=== PATIENT | male | born 1965 | race Caucasian/White ===

== ENCOUNTER 2021-01-09 07:45 | Emergency (ER) | payer BC, OTHER ==
[~2021-01-09] VITALS: Ht 185.4 cm; Wt 136.1 kg
[~2021-01-09 07:45] MED LIST: NORCO 5-325 TA1 EACH PO; TOBREX5 ML OPHTHALMIC
[2021-01-09] MEDS ORDERED: BENAZEPRIL-HCT1 EA11 PO (07:55)
[2021-01-09 08:22] LABS: ABSOLUTE NEUTROPHILS 5.6 thou/uL (1.4-8.2); BASOPHILS 0.9 % (0.0-2.0); EOSINOPHILS 3.3 % (0.0-3.0); HEMATOCRIT 48.4 % (42.0-52.0); HEMOGLOBIN 16.4 gm/dL (14.0-18.0); LYMPHOCYTES 18.2 % (24.0-44.0); MCH 30.6 pg (26.0-34.0); MCHC 33.9 g/dL (28.0-37.0); MCV 90.4 fL (80.0-100.0); MONOCYTES 9.3 % (1.0-8.0); PLATELET COUNT 166 thou/uL (150-400); POLYS 68.3 % (36.0-66.0); RBC 5.36 mil/uL (4.50-6.00); RDW 13.7 % (10.5-14.5); WBC 8.2 thou/uL (4.0-11.0)
[2021-01-09 08:27] LABS: ANION GAP 6 mmol/L (7-16); BUN 22 mg/dL (7-18); CALCIUM 8.8 mg/dL (8.5-10.1); CHLORIDE 100 mmol/L (98-107); CO2 30 mmol/L (21-32); CREATININE 1.3 mg/dL (0.7-1.3); GLUCOSE 284 mg/dL (74-106); POTASSIUM 4.3 mmol/L (3.5-5.1); SODIUM 136 mmol/L (136-145)
[2021-01-09 08:38] LABS: ALBUMIN 3.7 g/dL (3.4-5.0); AMYLASE 39 U/L (25-115); DIRECT BILIRUBIN 0.1 mg/dL (<0.1-0.2); LIPASE 190 U/L (73-393); SGOT 33 U/L (15-37); SGPT 60 U/L (16-63); TOTAL BILIRUBIN 0.6 mg/dL (0.2-1.0); TOTAL PROTEIN 7.3 g/dL (6.4-8.2); TROPONIN-I <0.06 ng/mL (<0.06)
[2021-01-09] MEDS ORDERED: VANACOF DM LIQ240 ML PO (09:13)
[2021-01-09] MEDS ORDERED: HYDROCODON-ACE1 EAC5 PO (09:13)
[2021-01-09] MEDS ORDERED: AZITHROMYCIN500 MG PO (09:13)
[2021-01-09] MEDS ORDERED: PROAIR HFA8.5 GM INH (09:14)
[2021-01-09 09:18] VITALS: BP 177/110
--- NOTE | 2021-01-10 07:38 | EKG ---
[place] [address] [address] [facility] [place] [address] ELECTROCARDIOGRAM REPORT Name: JOSE VAUGHN [id number] Admission: 01/09/21 Attend Phys: Discharge: 01/09/21 Date of : 61 Report #: [id number] [facility] ED Test Date: 2021-01-09 Test Time: 07:54:01 Pat Name: JOSE VAUGHN Department: Room: Gender: Deck Worker: MARYANA : 1965 Requested By: Adrián Riley Order Number: [id number] MD: Morris Mullen Measurements Intervals [place] Rate: 67 P: 41 [place]: 165 QRS: -27 QRSD: 90 T: 54 QT: 419 QTc: 443 Interpretive Statements Sinus rhythm Left ventricular hypertrophy Inferior infarct, old No previous ECG available for comparison Electronically Signed On 01-10-2021 7:38:28 [employer] by Morris Mullen [email or web address] <ELECTRONICALLY SIGNED> By: Morris Mullen MD, [facility] 01/10/21 [id number] Morris Mullen MD, FACC /EPI
== END 2021-01-09 09:24 | disposition home or self-care (01) ==
LOC: ER 07:45
PROVIDERS: Emergency Medicine
DX: S29.011A Strain of muscle and tendon of front wall of thorax, initial encounter (principal); I10 Essential (primary) hypertension; J40 Bronchitis, not specified as acute or chronic; F17.210 Nicotine dependence, cigarettes, uncomplicated; Z79.899 Other long term (current) drug therapy; X58.XXXA Exposure to other specified factors, initial encounter; Y93.89 Activity, other specified; Y92.89 Other specified places as the place of occurrence of the external cause; Y99.8 Other external cause status; Z20.822 Contact with and (suspected) exposure to COVID-19

== ENCOUNTER 2021-01-19 20:05 | Emergency (ER) | payer BC, OTHER ==
[~2021-01-19] VITALS: Ht 182.9 cm; Wt 136.1 kg
[~2021-01-19 20:05] MED LIST changes: +AZITHROMYCIN500 MG PO; +BENAZEPRIL-HCT1 EA11 PO; +HYDROCODON-ACE1 EAC5 PO; +PROAIR HFA8.5 GM INH; +VANACOF DM LIQ240 ML PO
[2021-01-19 20:37] LABS: ABSOLUTE NEUTROPHILS 5.1 thou/uL (1.4-8.2); BASOPHILS 1.4 % (0.0-2.0); EOSINOPHILS 2.8 % (0.0-3.0); HEMATOCRIT 48.1 % (42.0-52.0); HEMOGLOBIN 16.2 gm/dL (14.0-18.0); MCH 30.5 pg (26.0-34.0); MCHC 33.7 g/dL (28.0-37.0); MCV 90.8 fL (80.0-100.0); MONOCYTES 8.7 % (1.0-8.0); PLATELET COUNT 181 thou/uL (150-400); POLYS 60.1 % (36.0-66.0); RDW 13.5 % (10.5-14.5); WBC 8.4 thou/uL (4.0-11.0)
[2021-01-19 20:41] LABS: ANION GAP 4 mmol/L (7-16); BUN 18 mg/dL (7-18); CALCIUM 9.8 mg/dL (8.5-10.1); CHLORIDE 99 mmol/L (98-107); CO2 31 mmol/L (21-32); CREATININE 1.4 mg/dL (0.7-1.3); GLUCOSE 399 mg/dL (74-106); POTASSIUM 4.1 mmol/L (3.5-5.1); SODIUM 134 mmol/L (136-145)
[2021-01-19 20:53] LABS: ALBUMIN 3.5 g/dL (3.4-5.0); SGOT 30 U/L (15-37); SGPT 68 U/L (16-63); TOTAL BILIRUBIN 0.3 mg/dL (0.2-1.0); TOTAL PROTEIN 7.3 g/dL (6.4-8.2); TROPONIN-I <0.06 ng/mL (<0.06)
[2021-01-19] MEDS ORDERED: DOXYCYCLINE 10100 MG PO (21:31)
[2021-01-19 22:40] VITALS: BP 199/110
--- NOTE | 2021-01-20 07:18 | EKG ---
[place] [address] [address] [facility] [place] [address] ELECTROCARDIOGRAM REPORT Name: JOSE VAUGHN [facility] [id number] Admission: 01/19/21 Attend Phys: Discharge: 01/19/21 Date of : 61 Report #: [id number] [facility] ED Test Date: 2021-01-19 Test Time: 20:34:28 Pat Name: JOSE VAUGHN Department: Room: Gender: M Lacemaker: nanette : 1965 Requested By: Aries Nieves Order Number: [id number] MD: Morris Mullen Measurements Intervals [place] Rate: 73 P: 41 [place]: 163 QRS: -23 QRSD: 87 T: 68 QT: 399 QTc: 440 Interpretive Statements Sinus rhythm Probable left atrial enlargement Inferior infarct, old Compared to ECG 01/09/2021 07:54:01 Left ventricular hypertrophy no longer present Myocardial infarct finding still present Electronically Signed On 01-20-2021 7:18:08 CDT by Morris Muleln [email or web address] <ELECTRONICALLY SIGNED> By: Morris Mullen MD, [facility] 01/20/21717 33 33 Morris Mullen MD, FACC /EPI
== END 2021-01-19 22:40 | disposition home or self-care (01) ==
LOC: ER 20:05
PROVIDERS: Nurse Practitioner
DX: R04.2 Hemoptysis (principal); J18.9 Pneumonia, unspecified organism; R73.9 Hyperglycemia, unspecified; I10 Essential (primary) hypertension; Z79.899 Other long term (current) drug therapy